=== PATIENT | male | born 1975 | race Caucasian/White ===

== ENCOUNTER 2025-05-15 00:19 | Emergency (ER) | payer SELFPAY ==
[2025-05-15 00:26] VITALS: BP 149/92; PULSE 83; TEMP 37.4; O2SAT 99; BMI 25.1
--- NOTE | 2025-05-15 00:36 | XR_ITS ---
[address] [address] Patient Name: GARY MONZON MRN: [id number] date: 1975 Sex: M Assigned Patient Location: ED.MAIN Current Patient Location: Accession/Order Number: [id number] Exam Date: 05/15/2025 01:03 Report Date: 05/15/2025 09:14 At the request of: ARSENIO MARAVILLA DO Procedure: XR chest 1V PORTABLE AP ERECT CHEST 0047 hours CLINICAL HISTORY: cough and bodyaches for the past week COMPARISON: 10/30/2018 The heart is within normal limits. There is no vascular congestion. The lungs, as visualized, are clear. There is no effusion or pneumothorax. The osseous structures are intact. There is minor endplate spurring. XR/XR chest 1V IMPRESSION: NO ACUTE FINDINGS Impression dictated by: Iqra Dave M.D. 05/15/2025 9:14 AM Dictation Location: [facility] Electronically authenticated by: [id number] Y Date: 05/15/2025 09:14
[2025-05-15] MEDS: PREDNISONE 20 MG TABLET 60 MG PO (00:48)
[2025-05-15] MEDS: IPRATROPIUM/ALBUTEROL SULFATE 3 ML AMPUL.NEB IH (00:57)
[2025-05-15 00:59] VITALS: PULSE 80; O2SAT 97
--- OUTSIDE RECORDS SUMMARY | 2025-05-15 00:59 | XMS_ITS | Clinical Summary ---
Author Organization [facility] Address [address] [place] [address] Care Team Providers Care Environmental Services Director Name Role Phone Unavailable Primary Care Provider Unavailabl e Allergies Active Allergy Reactions Criticality Noted Date Comments Codeine Unknown 07/13/2022 Social History Tobacco Use Types Packs/Day Years Used Date Smoking Tobacco: Every Day Cigarettes Tobacco Cessation:Ready to Q uit: Not Asked; Counseling Given: Not Answered Alcohol Use Standard Drinks/Week Comments Never 0 (1 standard drink = 0.6 oz pur e alcohol) Sex and Gender Information Value Date Recorded Sex Assigned at Not on file Legal Sex Male 11:13 AM EDT Gender Identity Not on file Sexual Orientation Not on file Last Filed Vital Signs Vital Sign Reading Time Taken Comments Blood Pressure 150/95 07/13/2022 1:45 PM EDT Pulse 74 07/13/2022 1:45 PM EDT Temperature 36.6 C (97.9 F) 07/13/2022 11:32 AM EDT Respiratory Rate 16 07/13/2022 11:32 AM EDT Oxygen Saturation 97% 07/13/2022 1:45 PM EDT Inhaled Oxygen Concentration - - Weight 72.6 kg (160 lb) 07/13/2022 11:32 AM EDT Height 170.2 cm (5' 7 ) 07/13/2022 11:32 AM EDT Body Mass Index 25.06 07/13/2022 11:32 AM EDT Plan of Treatment Not on file
--- OUTSIDE RECORDS SUMMARY | 2025-05-15 00:59 | XMS_ITS | Clinical Summary ---
Author Organization [facility] Address [address] [place] [address] Care Team Providers Care Continuous Process Machine Operator Name Role Phone Unavailable Primary Care Provider Unavailabl e Social History Tobacco Use Types Packs/Day Years Used Date Smoking Tobacco: Never Assessed Sex and Gender Information Value Date Recorded Sex Assigned at Not on file Legal Sex Male 7:01 PM EDT Gender Identity Not on file Sexual Orientation Not on file Plan of Treatment Not on file
--- OUTSIDE RECORDS SUMMARY | 2025-05-15 00:59 | XMS_ITS | Clinical Summary ---
Author Organization [facility] Address [address] [place] [address] Care Team Providers Care Public Transportation Inspector Name Role Phone Edmund Stout Primary Care Provider + Allergies Active Allergy Reactions Criticality Noted Date Comments Codeine 06/15/2024 Medications faMOTIdine (Pepcid) 20 MG tablet Take 2 tablets by mouth 2 times daily for 10 days. 40 tablet 06/15/2024 Active Social History Tobacco Use Types Packs/Day Years Used Date Smoking Tobacco: Every Day Cigarettes Tobacco Cessation:Ready to Q uit: Not Asked; Counseling Given: Not Answered Alcohol Use Standard Drinks/Week Comments Never 0 (1 standard drink = 0.6 oz pur e alcohol) Sex and Gender Information Value Date Recorded Sex Assigned at Not on file Legal Sex Male 6:15 PM EDT Gender Identity Male 02/02/2018 2:38 PM EDT Sexual Orientation Not on file Last Filed Vital Signs Vital Sign Reading Time Taken Comments Blood Pressure 115/65 06/15/2024 10:24 PM EDT Pulse 94 06/15/2024 10:25 PM EDT Temperature 37 C (98.6 F) 06/15/2024 9:31 PM EDT Respiratory Rate 18 06/15/2024 9:31 PM EDT Oxygen Saturation 94% 06/15/2024 9:31 PM EDT Inhaled Oxygen Concentration - - Weight - - Height - - Body Mass Index - - Plan of Treatment Health Maintenance Due Date Last Done Comments HEPATITIS C VIRUS SCREENING 1975 HIV SCREENING DISCUSSION 1991 HEP B VACCINE (1 of 3 - 19+ 3-dose series) 1995 PNEUMOCOCCAL VACCINE SERIES (1 of 2 - PCV) 1995 LIPID SCREENING 2016 COVID-19 VACCINE ( season) 2024 INFLUENZA VACCINE (#1) 2025 COLORECTAL CANCER SCREENING DISCUSSION 06/15/2025 06/15/2024 TETANUS 07/19/2034 07/19/2024, 11/19, 07/14/2022 TDAP (ADULT) Completed 07/19/2024, 11/19, 07/14/2022 Procedures Procedure Name Priority Date/Time Associated Diagnosis Comments POCT OCCULT BLOOD STOOL STAT 06/15/2024 11:10 PM EDT from Last 3 Months or Most Recently Relevant to Health Maintenance Results * POCT OCCULT BLOOD STOOL (06/15/2024 11:10 PM EDT) HEMMOCULT 1 - POINT OF CARE negative us Adrian Benoit MD POINT OF CARE TESTING Final Resu lt from Last 3 Months or Most Recently Relevant to Health Maintenance Insurance Care Teams Public Transportation Inspector Relationship Specialty Start Date End Date Edmund Stout DO PCP - General Physical Medicine & Rehabilitation 02/03/18
--- OUTSIDE RECORDS SUMMARY | 2025-05-15 00:59 | XMS_ITS | Clinical Summary ---
Author Organization [facility] Address [address], [address] [place] [address] Care Team Providers Care Barrel Cutter Name Role Phone Edmund Stout Primary Care Provider + Allergies Active Allergy Reactions Criticality Noted Date Comments Bee Venom Anaphylaxis High 03/11/2022 Medications buprenorphine-n aloxone (SUBOXONE) 8-[address] film [address] 1 Film under the tongue in the morning and at bedtime. Active ibuprofen (ADVIL;MOTRIN) 200 MG tablet Take 200 mg by mouth every 6 hours as needed for Pain Active Social History Tobacco Use Types Packs/Day Years Used Date Smoking Tobacco: Every Day Cigarettes Smokeless Tobacco: Never Alcohol Use Standard Drinks/Week Comments Not Currently 0 (1 standard drink = 0.6 oz pur e alcohol) Sex and Gender Information Value Date Recorded Sex Assigned at Not on file Legal Sex Male 6:42 PM EST Gender Identity Not on file Sexual Orientation Not on file Last Filed Vital Signs Vital Sign Reading Time Taken Comments Blood Pressure 143/79 03/11/2022 9:01 PM EDT Pulse 78 03/11/2022 9:01 PM EDT Temperature 36.7 C (98.1 F) 03/11/2022 9:01 PM EDT Respiratory Rate 14 03/11/2022 9:01 PM EDT Oxygen Saturation 94% 03/11/2022 9:01 PM EDT Inhaled Oxygen Concentration - - Weight 76.2 kg (168 lb) 03/11/2022 5:00 PM EDT Height 170.2 cm (5' 7 ) 03/11/2022 5:00 PM EDT Body Mass Index 26.31 03/11/2022 5:00 PM EDT Plan of Treatment Not on file Care Teams Barrel Cutter Relationship Specialty Start Date End Date Edmund Stout DO [address] [address] PCP - General General Surgery 03/11/22
--- NOTE | 2025-05-15 01:03 | ED_ITS ---
HPI HPI - General Adult General Chief complaint: Upper Respiratory Infection Stated complaint: URI SYMPTOMS Time Seen by Provider: 05/15/25 00:26 Source: patient Mode of arrival: walk-in Limitations: no limitations History of Present Illness HPI narrative: The patient is a 49-year-old male presenting to the emergency department secondary to a cough. He said a cough for a week. It is nonproductive. He has tried Mucinex, Sudafed, and Motrin. He states when he coughs he has a sharp stabbing sensation in his back. Patient states he has felt subjectively fever, chilled, and he has body aches. Patient does not have any known sick contacts or recent travel. No nausea or vomiting. No diarrhea or constipation. No sore throat. No ear pain. No facial pain. No rashes. Patient does smoke. Symptoms are moderate in severity. Incessant coughing makes it worse. Nothing makes it better and the cough is keeping him from sleeping. Related Data Previous Rx's ?Medication ?Instructions ?Recorded albuterol sulfate 90 mcg/actuation 2 inh inhalation Q6 H PRN shortness 05/15/25 aerosol inhaler of breath or wheezing #8.5 g tangela azithromycin 250 mg tablet See Rx Instructions PO .COM PLEX #6 05/15/25 tabs benzonatate 200 mg capsule 200 mg PO TID PRN cough #14 caps 05/15/25 prednisone 10 mg tablet See Rx Instructions .Route 0 05/15/25 .COMPLEX #30 tabs Allergies Allergy/AdvReac Type Severity Reaction Status Date / Time codeine Allergy Mild Unknown Verified 05/15/25 00:26 Review of Systems ROS Narrative 10 Systems were reviewed, and unless not ed in the HPI, all other systems are reviewed, unremarkable, or noncontributory. [facility] Social History Little interest or pleasure in doing things: not at all Feeling down, depressed, or hopeless: not at all Exam Narrative Exam Narrative: Prior to examining the patient, I have washed with hospital approved and provided Antiseptic Hand Faith Healer and have also applied gloves.? Prior to touching the patient, I asked for consent to examine the patient.? General: Alert and oriented, well nourished, mild distress. Eye: PERRL, EOMI, normal conjunctiva. HENT: Normocephalic, normal hearing, moist oral mucosa, no scleral icterus Neck: Supple, non-tender, no carotid bruits, no JVD, no lymphadenopathy. Lungs: Clear to auscultation and percussion, non-labored respiration. No rhonchi or rales. But, there is diminished breath sounds in the bases and expiratory wheezing throughout. Deep inspiration invoked her cough. Heart: Normal rate, regular rhythm, no murmur, gallop or edema. Abdomen: Soft, non-tender, non-distended, normal bowel sounds, no masses. Musculoskeletal: Normal range of motion and strength, no tenderness or swelling. Skin: Skin is warm, dry and pink, no rashes or lesions. Neurologic: Awake, alert, and oriented X3, CN II-XII intact. Psychiatric: Cooperative, appropriate mood and affect.? Following the conclusion of the examination, I have washed my hands thoroughly after removing examination gloves. Constitutional Vital Signs, click to edit/add: Last Vital Signs Temp 99.4 F 05/15/25 00:26 Pulse 80 05/15/25 00:59 Resp 20 05/15/25 00:59 BP 149/92 H 05/15/25 00:26 Pulse Ox 97 05/15/25 00:59 O2 Del Method Room Air 05/15/25 00:59 Course Course Hospital Course: Patient is a 49-year-old smoker who presents to the emergency department with 1 week of an incessant cough and shortness of breath. No known history of asthma or COPD. Patient is going to get an x-ray, testing for COVID and influenza. Were to give the patient a breathing treatment and some steroids to see if that helps improve his condition. Reevaluation(s) Reevaluation #1: Chest x-ray was interpreted by me. Patient's COVID and influenza are negative. Therefore, I feel like the patient could go home with expectant management. Patient reports that he is feeling better since the nebulizer treatment. I am using antibiotic therapy to treat Ms. patient however I am using azithromycin for more anti-inflammatory properties as opposed to an antibiotic. Time: 01:13 Vital Signs Vital signs: Vital Signs Temperature 99.4 F 05/15/25 00:26 Pulse Rate 83 05/15/25 00:26 Respiratory Rate 18 05/15/25 00:26 Blood Pressure 149/92 H 05/15/25 00:26 Pulse Oximetry 99 05/15/25 00:26 Oxygen Delivery Method Room Air 05/15/25 00:26 Temperature 99.4 F 05/15/25 00:26 Pulse Rate 80 05/15/25 00:59 Respiratory Rate 20 05/15/25 00:59 Blood Pressure 149/92 H 05/15/25 00:26 Pulse Oximetry 97 05/15/25 00:59 Oxygen Delivery Method Room Air 05/15/25 00:59 Medical Decision Making MDM Narrative Medical decision making narrative: In summary, the patient is a 49-year-old male presenting to the emergency department with cough for 1 week. Patient does not have any known sick contacts or recent travel. Medical records were reviewed. I did not make any consultations regarding this case. Patient improved with the albuterol and prednisone while in the emergency department. I do feel it safe to let him go home. Patient will return if his symptoms worsen or change. Differential Diagnosis Differential Diagnosis: URI, bronchitis, COPD exacerbation, pneumonia Medical Records Medical records reviewed: Yes I reviewed the patient's medical records Lab Data Lab results reviewed: Yes I reviewed the patient's lab results Labs: Lab Results 05/15/25 Range/Units 00:45 Influenza Type A Ag Negative Influenza Type B Ag Negative SARS-CoV-2 Ag (CV2AG) Negative (NEGATIVE) Imaging Data Chest x-ray: Attestation: I personally reviewed and interpreted this imaging study as follows: My impression: Chest x-ray is negative for any acute cardiopulmonary process. Discharge Plan Discharge Chief Complaint: Upper Respiratory Infection Clinical Impression: Bronchitis Patient Disposition: Home, Self-Care Time of Disposition Decision: 01:07 Condition: Good Mode of Transportation: Private Vehicle Prescriptions / Home Meds: New prednisone 10 mg tablet See Rx Instructions .ROUTE .COMPLEX Qty: 30 0RF Rx Instructions: 4 tabs x 3 days then 3 tabs x 3 days then 2 tabs x 3 days then 1 tab x 3 days. azithromycin 250 mg tablet See Rx Instructions .ROUTE .COMPLEX Qty: 6 0RF Rx Instructions: For 250 mg dose pack: take 500 mg today (day 1), then 250 mg for 4 days (days 2-5) benzonatate 200 mg capsule 200 mg PO TID PRN (Reason: cough) Qty: 14 0RF albuterol sulfate 90 mcg/actuation HFA aerosol inhaler 2 inh inhalation Q6H PRN (Reason: shortness of breath or wheezing) Qty: 8.5 0RF Print Language: Bhutanese Instructions: Acute Bronchitis (ED) Additional Instructions: Thank you for trusting me with your care today. Referrals: Physician,Non-Staff, MD [Primary Care Provider] - 1 week
[2025-05-15 01:04] LABS: SARS-CoV-2 Ag NEGATIVE (NEGATIVE)
== END 2025-05-15 02:19 | disposition home or self-care (01) ==
PROVIDERS: Emergency Provider Emergency Medicine
DX: J40 Bronchitis, not specified as acute or chronic (principal); F17.200 Nicotine dependence, unspecified, uncomplicated
CPT/HCPCS: 71045; 87804; 87811; 94640; 99284; J7512